=== PATIENT | female | born 1995 | race African-American/Black ===

== ENCOUNTER 2021-02-22 14:38 | Emergency (ER) | payer MEDICAID ==
[~2021-02-22] VITALS: Ht 157.5 cm; Wt 66.8 kg
[2021-02-22 14:48] VITALS: TEMP 99.8
[2021-02-22] MEDS ORDERED: NAPROSYN500 MG PO (15:56)
[2021-02-22 16:17] VITALS: BP 109/68; PULSE 68
== END 2021-02-22 16:17 | disposition home or self-care (01) ==
LOC: COL.ER 14:38
DX: S50.01XA Contusion of right elbow, initial encounter (principal); J45.909 Unspecified asthma, uncomplicated; W22.8XXA Striking against or struck by other objects, initial encounter
CPT/HCPCS: J1885

== ENCOUNTER → 2021-05-26 | Emergency (ER) | payer MEDICAID ==
[~2021-05-26] MED LIST: AMOXICILLIN 8751 TAB PO; CLEOCIN HCL300 MG PO; NAPROSYN500 MG PO; NORCO 325 MG-51 TAB PO; PERCOCET 325 MG1 TA2 PO
== END ==
LOC: COL.ER 19:45
DX: R69 Illness, unspecified (principal)

== ENCOUNTER 2021-05-27 15:22 | Emergency (ER) | payer MEDICAID ==
[~2021-05-27] VITALS: Ht 157.5 cm; Wt 65.9 kg
[~2021-05-27 15:22] MED LIST changes: -AMOXICILLIN 8751 TAB PO; -CLEOCIN HCL300 MG PO; -NORCO 325 MG-51 TAB PO; -PERCOCET 325 MG1 TA2 PO
[2021-05-27 15:56] VITALS: BP 115/74; TEMP 99.3
[2021-05-27] MEDS ORDERED: PERCOCET 325 MG1 TA2 PO (16:22)
[2021-05-27] MEDS ORDERED: AMOXICILLIN 8751 TAB PO (16:22)
[2021-05-27 16:52] VITALS: PULSE 92
== END 2021-05-27 16:53 | disposition home or self-care (01) ==
LOC: COL.ER 15:22
DX: K04.7 Periapical abscess without sinus (principal); K02.9 Dental caries, unspecified; J45.909 Unspecified asthma, uncomplicated; Z88.5 Allergy status to narcotic agent

== ENCOUNTER 2021-06-23 13:39 | Emergency (ER) | payer MEDICAID ==
[~2021-06-23] VITALS: Ht 157.5 cm; Wt 61.4 kg
[~2021-06-23 13:39] MED LIST changes: +AMOXICILLIN 8751 TAB PO; +PERCOCET 325 MG1 TA2 PO
[2021-06-23 14:04] VITALS: BP 118/72; PULSE 72; TEMP 98.9
[2021-06-23] MEDS ORDERED: NORCO 325 MG-51 TAB PO (14:20)
[2021-06-23] MEDS ORDERED: CLEOCIN HCL300 MG PO (14:20)
== END 2021-06-23 14:28 | disposition home or self-care (01) ==
LOC: COL.ER 13:39
DX: K08.89 Other specified disorders of teeth and supporting structures (principal); J45.909 Unspecified asthma, uncomplicated

== ENCOUNTER 2023-09-13 23:04 | Emergency (ER) | payer MEDICAID ==
[~2023-09-13] VITALS: Ht 157.5 cm; Wt 66.4 kg
[~2023-09-13 23:04] MED LIST changes: +CLEOCIN HCL300 MG PO; +LYSTEDA650 MG PO; +NORCO 325 MG-51 TAB PO
[2023-09-13 23:12] VITALS: TEMP 98.8
[2023-09-13 23:40] LABS: BASO # 0.1 K/mm3 (0.0-0.2); BASO % 0.9 % (0.0-2.0); EOS # 0.2 K/mm3 (0.0-0.7); EOS % 1.8 % (0.0-4.0); GRAN # 4.6 K/mm3 (1.4-6.5); GRAN % 46.7 % (42.2-75.2); HEMOGLOBIN 10.7 g/dl (12.5-16.0); LYMPH # 4.3 K/mm3 (1.2-3.4); LYMPH % 43.9 % (20.0-51.0); MEAN CELL VOLUME 77 fl (80.0-100.0); MEAN CORPUSCULAR HEMOGLOBIN 24 pg (27-31); MEAN CORPUSCULAR HGB CONC 31 g/dl (33.0-37.0); MEAN PLATELET VOLUME 10.4 fl (7.4-10.4); MONO # 0.6 K/mm3 (0.1-0.6); MONO % 6.5 % (1.7-9.3); PLATELET COUNT 422 K/mm3 (130-400); RED BLOOD COUNT 4.56 M/mm3 (4.10-5.30); REDCELL DISTRIBUTION WIDTH-CV 15.7 % (11.5-14.5)
[2023-09-13 23:41] LABS: HEMATOCRIT 35.1 % (37.0-47.0)
[2023-09-13 23:57] LABS: ALBUMIN 3.9 gm/dL (3.5-5.0); BILIRUBIN,TOTAL 0.4 mg/dL (0.2-1.2); C-REACTIVE PROTEIN 0.09 mg/dL (0.00-0.50); CALCIUM 9.2 mg/dL (8.4-10.2); CREATININE, serum 0.86 mg/dL (0.57-1.11); MAGNESIUM 2.1 mg/dL (1.6-2.6); POTASSIUM 3.4 mmol/L (3.5-4.5); TOTAL PROTEIN 7.7 gm/dL (6.2-8.1)
[2023-09-14 00:05] LABS: COLLECTION METHOD CLEAN CATCH
[2023-09-14 00:21] LABS: URINE APPEARANCE Hazy (CLEAR/HAZY); URINE BLOOD Negative (NEGATIVE); URINE COLOR Yellow (YELLOW); URINE GLUCOSE Negative (NEGATIVE); URINE KETONE 2+ (NEGATIVE); URINE NITRATE Positive (NEGATIVE); URINE PROTEIN(semi-quant) 1+ (NEGATIVE); URINE UROBILINOGEN 0.2 E.U/dL (0.2-1.0)
[2023-09-14 00:22] LABS: MUCOUS Present (NOT PRESENT); SQUAMOUS EPITHELIAL 20-50 /hpf (0-10); URINE BACTERIA Many /hpf (NONE SEEN); URINE RBC 0-2 /hpf (0-2)
[2023-09-14] MEDS ORDERED: MACROBID 1100 MG/CAP PO (00:40)
[2023-09-14] MEDS ORDERED: NAPROSYN500 MG PO (00:41)
[2023-09-14 00:52] VITALS: BP 117/74; PULSE 76
== END 2023-09-14 00:57 | disposition home or self-care (01) ==
LOC: COL.ER 23:04
PROVIDERS: Emergency Medicine
DX: N39.0 Urinary tract infection, site not specified (principal); Z87.59 Personal history of other complications of pregnancy, childbirth and the puerperium
CPT/HCPCS: J1885; J7030

== ENCOUNTER 2023-12-26 23:37 | Emergency (ER) | payer MEDICAID ==
[~2023-12-26] VITALS: Ht 157.5 cm; Wt 61.8 kg
[~2023-12-26 23:37] MED LIST changes: +MACROBID 1100 MG/CAP PO
[2023-12-26 23:42] VITALS: TEMP 98.1
[2023-12-27 02:45] VITALS: BP 117/77; PULSE 68
[2023-12-27] MEDS ORDERED: Azithromycin 250 MG TAB PO ONE (02:45)
== END 2023-12-27 02:45 | disposition home or self-care (01) ==
LOC: COL.ER 23:37
DX: A74.9 Chlamydial infection, unspecified (principal)